=== PATIENT | male | born 1985 | race Two or more races ===

== ENCOUNTER 2016-06-05 03:34 | Emergency (ER) | payer BC, OTHER ==
[2016-06-05 04:07] LABS: ABSOLUTE BASOPHILS # (AUTO) 0.1 10^3/uL (0.0-0.2); ABSOLUTE EOSINOPHILS # (AUTO) 0.3 10^3/uL (0.0-0.6); ABSOLUTE LYMPHOCYTES (AUTO) 4.6 10^3/uL (0.5-4.7); ABSOLUTE MONOCYTES (AUTO) 0.7 10^3/uL (0.1-1.4); ABSOLUTE NEUT (AUTO) 4.2 10^3/uL (1.7-8.2); BASOPHILS % (AUTO) 0.5 % (0-2); EOSINOPHILS % (AUTO) 2.6 % (0-6); HEMATOCRIT 47.2 % (37.9-51.0); HEMOGLOBIN 16.2 g/dL (13.5-17.0); HGB HCT DIFFERENCE 1.4; LYMPHOCYTES % (AUTO) 46.9 % (13-45); MEAN CORPUSCULAR HEMOGLOBIN 28.7 pg (27.0-33.4); MEAN CORPUSCULAR HGB CONC 34.4 g/dL (32.0-36.0); MEAN CORPUSCULAR VOLUME 83 fl (80-97); MONOCYTES % (AUTO) 7.2 % (3-13); RED BLOOD COUNT 5.66 10^6/uL (4.35-5.55); RED CELL DISTRIBUTION WIDTH 13.4 % (11.5-14.0); SEGMENTED NEUTROPHILS % (AUTO) 42.8 % (42-78); WHITE BLOOD COUNT 9.7 10^3/uL (4.0-10.5)
[2016-06-05 04:25] LABS: ALANINE AMINOTRANSFERASE 40 U/L (21-72); ALBUMIN 4.3 g/dL (3.5-5.0); ALKALINE PHOSPHATASE 104 U/L (38-126); ANION GAP 12 (5-19); ASPARTATE AMINO TRANSFERASE 26 U/L (17-59); BILIRUBIN,TOTAL 0.8 mg/dL (0.2-1.3); BLOOD UREA NITROGEN 12 mg/dL (7-20); CALCIUM 9.9 mg/dL (8.4-10.2); CARBON DIOXIDE 25 mmol/L (22-30); CHLORIDE 103 mmol/L (98-107); CREATININE RESULT 0.88 mg/dL (0.52-1.25); GLUCOSE 151 mg/dL (75-110); MAGNESIUM 1.9 mg/dL (1.6-2.3); POTASSIUM 3.7 mmol/L (3.6-5.0); SODIUM 139.8 mmol/L (137-145); TOTAL PROTEIN 7.9 g/dL (6.3-8.2)
--- NOTE | 2016-06-05 04:26 | ER Document Report ---
ED General - General Time seen by provider: 04:30 Mode of Arrival: Medic Information source: Relative - spouse, Emergency Med Personnel TRAVEL OUTSIDE OF THE [place] IN LAST 30 DAYS: No - HPI Onset: Just prior to arrival - see HPI note <MARTÍN LITTLE - Last Filed: 06/05/16 05:45> <EASTON MOTA - Last Filed: 06/05/16 06:29> - General Chief Complaint: Weakness Stated Complaint: POSSIBLE SEIZURES Notes: Patient is a 31 year old male presenting to the emergency department for weakness and an unresponsive event. Patient was watching TV when the patient's spouse found him approximately at 3:30 to be unresponsive. Spouse states the patient's eyes were rolled back and he was moving his head but was not responding. Spouse states as she was contacting 911 patient came to but could not speak well; he was slurring his words and not able to make coherent sentences. Patient's spouse states she believes he was normal at 2:44 this morning. Patient had some runny nose so he took an amoxicillin; patient's spouse states he started itching his arms after taking this medication. Patient has been in contact with his daughters who have RSV. Patient does not drink EtOH. Patient complains of nausea, chills, and a headache (head feels heavy). Triage note states patient was moaning upon arrival and was tachycardic. Spouse states she does not believe he was having a seizure because he was not shaking or moving his arms; spouse states he has never had symptoms like this before. Patient has no known allergies. (MARTÍN LITTLE) - Related Data Allergies/Adverse Reactions: No Known Allergies Allergy (Unverified 10/17/13 15:50) Past Medical History - General Information source: Relative - spouse - Social History Smoking Status: Current Every Day Smoker Frequency of alcohol use: None Drug Abuse: None Family History: None - Immunizations Hx Diphtheria, Pertussis, Tetanus Vaccination: Yes <MARTÍN LITTLE - Last Filed: 06/05/16 05:45> Review of Systems - Review of Systems Constitutional: See HPI, Chills, Weakness EENT: No symptoms reported Cardiovascular: No symptoms reported Respiratory: No symptoms reported Gastrointestinal: See HPI, Nausea Genitourinary: No symptoms reported Male Genitourinary: No symptoms reported Musculoskeletal: No symptoms reported Skin: No symptoms reported Hematologic/Lymphatic: No symptoms reported Neurological/Psychological: See HPI, Weakness, Headaches -: Yes All other systems reviewed and negative <MARTÍN LITTLE - Last Filed: 06/05/16 05:45> Physical Exam - Vital signs Interpretation: Normal - General General appearance: Alert, Other - patient is somnolent but awake; able to answer questions In distress: Mild - HEENT Head: Normocephalic, Atraumatic Eyes: Normal Pupils: PERRL Mouth/Lips: Normal Mucous membranes: Moist Pharynx: Normal - Respiratory Respiratory status: No respiratory distress Chest status: Nontender Breath sounds: Normal Chest palpation: Normal - Cardiovascular Rhythm: Regular Heart sounds: Normal auscultation Murmur: No - Abdominal Inspection: Normal Distension: No distension Bowel sounds: Normal Tenderness: Nontender Organomegaly: No organomegaly - Back Back: Normal, Nontender - Extremities General upper extremity: Normal inspection, Normal ROM, Normal strength General lower extremity: Normal inspection, Normal ROM, Normal strength. No: Edema - Neurological Neuro grossly intact: Yes Cognition: Normal Orientation: AAOx4 Martita Coma Scale Eye Opening: Spontaneous [place]ocker Coma Scale Verbal: Oriented Martita Coma Scale Motor: Obeys Commands Knickerbocker Coma Scale Total: 15 Speech: Other - patient speaks in a soft voice - Psychological Associated symptoms: Normal affect, Normal mood - Skin Skin Temperature: Warm Skin Moisture: Dry Skin Color: Normal Skin irregularity: negative: Rash <GORDONSEVERIANOMARTÍN - Last Filed: 06/05/16 05:45> - Neurological Neuro grossly intact: Yes Speech: Normal - Psychological Associated symptoms: Normal affect, Normal mood <EASTON MOTA - Last Filed: 06/05/16 06:29> Course - Laboratory Result Diagrams: 06/05/16 03:49 06/05/16 03:49 <MARTÍN LITTLE - Last Filed: 06/05/16 05:45> - Laboratory Result Diagrams: 06/05/16 03:49 06/05/16 03:49 <EASTON MOTA - Last Filed: 06/05/16 06:29> - Re-evaluation Re-evalutation: 06/05/16 06:20 Patient presents to emergency department after having some sort of a syncopal episode at the house this morning. The indicates that she got up when the baby was crying and she saw her laying on the couch and it looked like his eyes were rolled back. She says that she tried to wake him up and he wouldn' t respond so she called 911. She indicates that he did come around when she called 911. She said that it took about 5 minutes for him to regain his bearings and started speaking normally again. The patient says that he was feeling unwell all day yesterday with nausea, sore throat, subjective fever, head and chest congestion and felt like he is coming down with the flu. They have 2 young children who are both RSV positive currently. He was nauseated on arrival. He is not having vomiting or diarrhea. On exam, patient is somnolent but awakes and is alert and oriented. He answers questions appropriately. Initially speaks in a soft voice. The vital signs are stable with just mild tachycardia. He is not hypoxic. Not in respiratory distress. No focal neurologic abnormalities. No signs of meningismus. He is afebrile and nontoxic appearing. Mucous membranes are tacky. His oropharynx is unremarkable. Chest and abdomen are also unremarkable. Patient's symptoms are consistent with acute viral syndrome with possible syncopal episode possibly secondary to mild dehydration. Head CT and chest x-ray are unremarkable with exception of some mild sinus disease noted. Initial EKG was tachycardic to 124 however shortly after this the patient's heart rate was 100. The patient's workup does not reveal any acute abnormalities requiring urgent intervention. He was given 2 L of normal saline and is feeling much better is smiling is talkative and ready to go home. (EASTON MOTA) - Laboratory Laboratory results interpreted by me: 06/05/16 06/05/16 06/05/16 03:49 03:49 03:49 RBC 5.66 H Lymphocytes % 46.9 H Glucose 151 H POC Glucose Urine Blood SMALL H 06/05/16 04:05 RBC Lymphocytes % Glucose POC Glucose 132 H Urine Blood - EKG Interpretation by Me Additional EKG results interpreted by me: 06/05/16 04:40 Heart rate 124, sinus tachycardia, normal axis, normal intervals, no ST elevations, as interpreted by me. No old for comparison.. (EASTON MOTA) Discharge <MARTÍN LITTLE - Last Filed: 06/05/16 05:45> <EASTON MOTA - Last Filed: 06/05/16 06:29> - Discharge Clinical Impression: Viral syndrome, Dehydration Syncope Qualifiers: Syncope type: unspecified Qualified Code(s): R55 - Syncope and collapse Condition: Stable Disposition: HOME, SELF-CARE Instructions: Viral Syndrome ([facility]), Dehydration ([facility]), Syncopal Episode ([facility]) Additional Instructions: Drink plenty of fluids to stay well hydrated. Take it easy over the next couple of days. Please follow-up with the primary physician on Tuesday. Monitor for fever and use Tylenol and/or Motrin for temperature greater than 100.3. Return to emergency department for fevers not controlled by Tylenol or Motrin, vomiting so not to keep down fluids, chest pain, difficulty breathing, or other worsening or concerning symptoms. Prescriptions: Ondansetron [Zofran Odt 4 mg Tablet] 1 - 2 tab PO Q4H PRN #15 tab.rapdis PRN Reason: For Nausea/Vomiting Scribe Attestation: 06/05/16 06:19 I personally performed the services described in the documentation, reviewed and edited the documentation which was dictated to the scribe in my presence, and it accurately records my words and actions. (EASTON MOTA) Scribe Documentation - Scribe Written by Halley:: Martín Little 06/05/16 5:35 acting as scribe for :: Murry <MARTÍN LITTLE - Last Filed: 06/05/16 05:45>
[2016-06-05 04:27] LABS: ALCOHOL < 10 mg/dL (NONE DETECTED)
[2016-06-05] MEDS ORDERED: NORMAL SALINE 1000 ML 1,000 ML IV ONE (04:39)
[2016-06-05] MEDS ORDERED: ONDANSETRON HCL INJ/PF 4 MG/2 ML SDV IV ONE (04:39)
[2016-06-05 04:56] LABS: APPEARANCE,URINE CLEAR; BILIRUBIN,URINE NEGATIVE (NEGATIVE); GLUCOSE, URINE NEGATIVE (NEGATIVE); KETONES,URINE NEGATIVE (NEGATIVE); LEUKOCYTE ESTERASE,URINE NEGATIVE (NEGATIVE); NITRITE,URINE NEGATIVE (NEGATIVE); PROTEIN,URINE NEGATIVE (NEGATIVE); URINE SPECIFIC GRAVITY 1.006; UROBILINOGEN,URINE NEGATIVE mg/dL (<2.0)
[2016-06-05 05:10] LABS: URINE BARBITURATES SCREEN NEGATIVE; URINE METHADONE SCREEN NEGATIVE; URINE OPIATES LOW NEGATIVE; URINE PHENCYCLIDINE SCREEN NEGATIVE
[2016-06-05 07:37] VITALS: BP 108/68
--- NOTE | 2016-06-05 16:02 | EKG REPORT ---
SEVERITY:- OTHERWISE NORMAL ECG - SINUS TACHYCARDIA : Confirmed by: Kelli Colindres MD 05-Jun-2016 16:01:50
== END 2016-06-05 07:33 | disposition home or self-care (01) ==
LOC: ER 03:34
DX: B34.9 Viral infection, unspecified (principal); E86.0 Dehydration; R55 Syncope and collapse; R53.1 Weakness; R11.0 Nausea; F17.200 Nicotine dependence, unspecified, uncomplicated
CPT/HCPCS: 93005; 99285; 96374; 36415; 82962; 80307 ×2; 83735; 85025; 80053; 81001; 87804; 71010; 70450; 93010; J2405

== ENCOUNTER 2017-07-08 13:10 | Emergency (ER) | payer SELFPAY ==
[2017-07-08 13:21] VITALS: BP 124/74
--- NOTE | 2017-07-08 13:45 | ER Document Report ---
ED General - General Mode of Arrival: Ambulatory Information source: Patient <JAVIER DAVIS - Last Filed: 07/08/17 16:24> - General TRAVEL OUTSIDE OF THE [place] IN LAST 30 DAYS: No <EVE DANIELS - Last Filed: 07/10/17 10:59> - General Chief Complaint: Rectal Bleeding Stated Complaint: RECTAL BLEEDING Time Seen by Provider: 07/08/17 13:32 Notes: Patient is a 32 year old male that presents to the emergency department today with complaints of rectal bleeding off and on for the last 2 months. Patient states there is minimal pain with this. Patient denies any anal penetration. Patient states she has tried Tums with minimal relief. Patient describes the blood as bright red. Patient denies a history of constipation, fevers, or chills. (JAVIER DAVIS) - Related Data Allergies/Adverse Reactions: No Known Allergies Allergy (Verified 07/08/17 13:30) Past Medical History - General Information source: Patient - Social History Smoking Status: Current Every Day Smoker Chew tobacco use (# tins/day): No Frequency of alcohol use: None Drug Abuse: None Family History: None Patient has suicidal ideation: No Patient has homicidal ideation: No GI Medical History: Reports: Hx Gastroesophageal Reflux Disease Psychiatric Medical History: Denies: Hx Depression Surgical Hx: Negative <JAVIER DAVIS - Last Filed: 07/08/17 16:24> - Social History Smoking Status: Current Every Day Smoker Chew tobacco use (# tins/day): No Frequency of alcohol use: None Drug Abuse: None Family History: None Patient has suicidal ideation: No Patient has homicidal ideation: No Renal/ Medical History: Denies: Hx Peritoneal Dialysis GI Medical History: Reports: Hx Gastroesophageal Reflux Disease Psychiatric Medical History: Denies: Hx Depression - Immunizations Hx Diphtheria, Pertussis, Tetanus Vaccination: Yes <EVE DANIELS - Last Filed: 07/10/17 10:59> Review of Systems - Review of Systems Constitutional: No symptoms reported EENT: No symptoms reported Cardiovascular: No symptoms reported Respiratory: No symptoms reported Gastrointestinal: See HPI, Rectal bleeding Genitourinary: No symptoms reported Male Genitourinary: No symptoms reported Musculoskeletal: No symptoms reported Skin: No symptoms reported Hematologic/Lymphatic: No symptoms reported Neurological/Psychological: No symptoms reported -: Yes All other systems reviewed and negative <JAVIER DAVIS - Last Filed: 07/08/17 16:24> Physical Exam <JAVIER DAVIS - Last Filed: 07/08/17 16:24> <EVE DANIELS - Last Filed: 07/10/17 10:59> - Vital signs Vitals: Temp Pulse Resp BP Pulse Ox 98.4 F 89 18 124/74 96 07/08/17 13:20 07/08/17 13:20 07/08/17 13:20 07/08/17 13:20 07/08/17 13:20 - Notes Notes: Physical Exam: General: Alert, appears well. HEENT: Normocephalic. Atraumatic. PERRL. Extraocular movements intact. Oropharynx clear. Neck: Supple. Non-tender. Respiratory: No respiratory distress. Clear and equal breath sounds bilaterally. Cardiovascular: Regular rate and rhythm. Abdominal: Normal Inspection. Non-tender. No distension. Normal Bowel Sounds. Back: Non-tender. No deformity or step off. Rectal: 1 small non-thrombosed external hemorrhoid Extremities: Moves all four extremities. Upper extremities: Normal inspection. Normal ROM. Lower extremities: Normal inspection. No edema. Normal ROM. Neurological: Normal cognition. AAOx4. Normal speech. Psychological: Normal affect. Normal Mood. Skin: Warm. Dry. Normal color. (JAVIER DAVIS) Course <JAVIER DAVIS - Last Filed: 07/08/17 16:24> <EVE DANIELS - Last Filed: 07/10/17 10:59> - Re-evaluation Re-evalutation: 07/08/17 13:42 Has no evidence of fissures has 1 small external hemorrhoid that is nonthrombosed. Patient signs and symptoms are consistent with internal hemorrhoids. Discussed using Metamucil daily as well as drinking at least 5-6 glasses of water daily he states he normally. Patient does not have any abdominal pain and bleeding is intermittent does not suggest diverticulosis of though I did discuss that is differential with them. Return precautions were also provided. Patient does have a primary care physician is to follow-up with them in the next 1-2 weeks for reevaluation as well as I did discuss they would likely perform an anoscopy. (EVE DANIELS) - Vital Signs Vital signs: Temp Pulse Resp BP Pulse Ox 98.4 F 89 18 124/74 96 07/08/17 13:20 07/08/17 13:20 07/08/17 13:20 07/08/17 13:20 07/08/17 13:20 Discharge <JAVIER DAVIS - Last Filed: 07/08/17 16:24> <EVE DANIELS - Last Filed: 07/10/17 10:59> - Discharge Clinical Impression: Rectal bleeding Disposition: HOME, SELF-CARE Instructions: Hemorrhoids ([facility]) Additional Instructions: Please follow-up with your primary care physician in the next 1-2 weeks for reevaluation. Per our discussion, please start using Metamucil once daily as directed for at least 5-6 glasses of water daily. Scribe Attestation: 07/10/17 10:59 I personally performed the services described in the documentation, reviewed and edited the documentation which was dictated to the scribe in my presence, and it accurately records my words and actions. (EVE DANIELS) Scribe Documentation - Scribe Written by Halley:: Halley Aponte, 07/08/2017 1628 acting as scribe for :: Marky <JAVIER DAVIS - Last Filed: 07/08/17 16:24>
== END 2017-07-08 14:20 | disposition home or self-care (01) ==
LOC: ER 13:10
DX: K62.5 Hemorrhage of anus and rectum (principal); K64.8 Other hemorrhoids; F17.200 Nicotine dependence, unspecified, uncomplicated; K21.9 Gastro-esophageal reflux disease without esophagitis
CPT/HCPCS: 99283